=== PATIENT | female | born 1970 | race Caucasian/White ===

== ENCOUNTER → 2023-11-20 06:32 | Outpatient (REF) | payer OTHER, SELFPAY | LOC: MRI 06:32 | PROVIDERS: ATTENDING PHYSICIAN Podiatrist Foot Surgery; FAMILY PHYSICIAN Nurse Practitioner | DX: M72.2 Plantar fascial fibromatosis (principal) | CPT/HCPCS: 73721 ==

== ENCOUNTER → 2024-05-15 12:39 | Outpatient (REF) | payer OTHER, SELFPAY | LOC: WDC 12:39 | PROVIDERS: ATTENDING PHYSICIAN Obstetrics & Gynecology; FAMILY PHYSICIAN Nurse Practitioner | DX: Z12.31 Encounter for screening mammogram for malignant neoplasm of breast (principal) | CPT/HCPCS: 77063; 77067 ==

== ENCOUNTER → 2024-11-14 14:26 | Outpatient (REF) | payer OTHER, SELFPAY | LOC: MRI 3T 14:26 | PROVIDERS: ATTENDING PHYSICIAN Nurse Practitioner Adult Health; FAMILY PHYSICIAN Nurse Practitioner | DX: R92.2 Inconclusive mammogram (principal); Z80.3 Family history of malignant neoplasm of breast | CPT/HCPCS: 77049; A9585 ==

== ENCOUNTER → 2025-05-22 10:43 | Outpatient (REF) | payer OTHER, SELFPAY | LOC: WDC 10:43 | PROVIDERS: ATTENDING PHYSICIAN Obstetrics & Gynecology; FAMILY PHYSICIAN Nurse Practitioner | DX: Z12.31 Encounter for screening mammogram for malignant neoplasm of breast (principal) | CPT/HCPCS: 77063; 77067 ==

== ENCOUNTER → 2025-08-28 06:32 | Outpatient (REF) | payer OTHER, SELFPAY | LOC: HWRAD 06:32 | PROVIDERS: ATTENDING PHYSICIAN Obstetrics & Gynecology; FAMILY PHYSICIAN Nurse Practitioner | DX: Z78.0 Asymptomatic menopausal state (principal) | CPT/HCPCS: 77080 ==

== ENCOUNTER → 2025-09-05 16:38 | Outpatient (REF) | payer OTHER, SELFPAY | LOC: PAVMRI 16:38 | PROVIDERS: ATTENDING PHYSICIAN Orthopaedic Surgery Hand Surgery; FAMILY PHYSICIAN Nurse Practitioner | DX: M75.01 Adhesive capsulitis of right shoulder (principal) | CPT/HCPCS: 73221 ==